=== PATIENT | male | born 2000 | race African-American/Black ===

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

== ENCOUNTER 2019-07-10 17:41 | Emergency (ER) | payer OTHER ==
[~2019-07-10] VITALS: Ht 188 cm; Wt 93.7 kg
[2019-07-10 17:41] VITALS: BP 130/50
[~2019-07-10 17:41] MED LIST changes: +AMOX1TAB61 PO
--- NOTE | 2019-07-10 18:05 | ED.ADGEN ---
Past History Past Medical History: No Pertinent History Past Surgical History: No Surgical History Smoking: Non-smoker Alcohol Use: None Drug Use: Marijuana Adult General Chief Complaint Chief Complaint "..I got the callus on my feet .. I want you to cut them off... now...." HPI HPI Patient is a 18 year old male who presents with complaints of callus on his feet. Patient requesting multiple callus because obvious feet. Calluses were co nsistent with plantar warts. Discussed findings with patient at length. Recommended patient use [id number] treatment for plantar's warts. If no success after a couple months of follow-up with podiatry. Patient denies any history immunosuppression. Patient denies history of diabetes Review of Systems Review of Systems Constitutional: Denies fever or chills [] Eyes: Denies change in visual acuity, redness, or eye pain [] HENT: Denies nasal congestion or sore throat [] Respiratory: Denies cough or shortness of breath [] Cardiovascular: No additional information not addressed in HPI [] GI: Denies abdominal pain, nausea, vomiting, bloody stools or diarrhea [] : Denies dysuria or hematuria [] Musculoskeletal: Denies back pain or joint pain []complaints of foot pain Integument: Denies rash or skin lesions [] Neurologic: Denies headache, focal weakness or sensory changes [] Endocrine: Denies polyuria or polydipsia [] All other systems were reviewed and found to be within normal limits, except as documented in this note. Family History Family History Noncontributory Current Medications Current Medications See nursing for home meds Allergies Allergies Allergies Coded Allergies Type Severity Reaction Last Updated Verified No Known Allergies Allergy Unknown 07/29/18 Yes Physical Exam Physical Exam Constitutional: Well developed, well nourished, no acute distress, non-toxic appearance. [] HENT: Normocephalic, atraumatic, bilateral external ears normal, oropharynx moist, no oral exudates, nose normal. [] Eyes: PERRLA, EOMI, conjunctiva normal, no discharge. [] Neck: Normal range of motion, no tenderness, supple, no stridor. [] Cardiovascular:Heart rate regular rhythm, no murmur [] Lungs & Thorax: Bilateral breath sounds equal with scattered wheezes on auscultation [] Abdomen: Bowel sounds normal, soft, no tenderness, no masses, no pulsatile masses. [] Skin: Warm, dry, no erythema, no rash. [] Planters warts on both feet. Back: No tenderness, no CVA tenderness. [] Extremities: No tenderness, no cyanosis, no clubbing, ROM intact, no edema. [] Neurologic: Alert and oriented X 3, normal motor function, normal sensory f unction, no focal deficits noted. [] Psychologic: Affect normal, judgement normal, mood normal. [] Current Patient Data Vital Signs Vital Signs Date Time Temp Pulse Resp B/P (MAP) Pulse Ox O2 Delivery O2 Flow Rate FiO2 07/10/19 17:41 98.8 77 16 98 Room Air EKG EKG [] Radiology/Procedures Radiology/Procedures [] Course & Med Decision Making Course & Med Decision Making Pertinent Labs and Imaging studies reviewed. (See chart for details) Patient follow-up primary care. Patient follow-up podiatry if unsuccessful treatment after treatment with [id number] treatment for plantar warts x 2 months. Patient encouraged to stop smoking.. Patient take Tylenol and ibuprofen for pain. [] Final Impression Final Impression 1. Callus - on feet[]/ Plantars warts Dragon Disclaimer Dragon Disclaimer This electronic medical record was generated, in whole or in part, using a voice recognition dictation system. Discharge Summary Visit Information Final Diagnosis Problems Medical Problems: (1) Plantar wart of both feet Status: Acute Brief Hospital Course Allergies Allergies Coded Allergies Type Severity Reaction Last Updated Verified No Known Allergies Allergy Unknown 07/29/18 Yes Vital Signs Vital Signs Date Time Temp Pulse Resp B/P (MAP) Pulse Ox O2 Delivery O2 Flow Rate FiO2 07/10/19 17:41 98.8 77 16 98 Room Air Brief Hospital Course Mr. Lorenzo is a 18 old male who presented with plantar warts. Discharge Information Condition at Discharge: Stable Disposition/Orders: D/C to Home Dischare Medications Active Scripts Active Augmentin 875-125 Tablet (Amoxicillin/Potassium Clav) 1 Each Tablet 1 Tab PO BID Clindamycin Hcl 300 Mg Capsule 1 Cap PO TID Tylenol With Codeine #3 Tablet (Acetaminophen With Codeine) 1 Each Tablet 1 Tab PO Q4-6HRS Dragon Disclaimer This chart was dictated in whole or in part using Voice Recognition software in a busy, high-work load, and often noisy Emergency Department environment. It may contain unintended and wholly unrecognized errors or omissions. ARABELLA CHAVEZ MD Jul 10, 2019 18:04
== END 2019-07-10 18:35 | disposition home or self-care (01) ==
LOC: ER 17:41
DX: B07.0 Plantar wart (principal)
CPT/HCPCS: 99281

== ENCOUNTER 2019-07-16 09:34 | Emergency (ER) | payer OTHER ==
[~2019-07-16] VITALS: Ht 188 cm; Wt 93.9 kg
[2019-07-16 09:44] VITALS: BP 165/91
[2019-07-16] MEDS ORDERED: BENZONATATE 100 MG CAPSULE. PO ONE (10:00)
[2019-07-16] MEDS ORDERED: BENZ100C PO (10:03)
--- NOTE | 2019-07-16 10:03 | PHYS DOC ---
Past History Past Medical History: No Pertinent History Past Surgical History: No Surgical History Smoking: Non-smoker Alcohol Use: None Drug Use: None Adult General Chief Complaint Chief Complaint: COUGH HPI HPI 18-year-old male presents with 3 day history of cough, congestion, nasal drainage. The patient started with a profusely runny nose. He states that it is clear, but slightly yellow today. He's also had some blood tinged nasal d ischarge today. He has been blowing his nose a lot last few days. He has tried cetirizine without relief. He also tried NyQuil last night. The patient has had a cough from the nasal drainage. He now has some anterior chest wall discomfort at the top of his sternum. He describes his pain more as his throat than his chest. The patient denies fever or chills at home. No one else in his household is sick. He does not have a history of allergies. Review of Systems Review of Systems Constitutional: Denies fever or chills [] Eyes: Denies change in visual acuity, redness, or eye pain [] HENT: Nasal congestion, runny nose, sore throat [] Respiratory: Cough without shortness of breath [] Cardiovascular: No additional information not addressed in HPI [] GI: Denies abdominal pain, nausea, vomiting, bloody stools or diarrhea [] : Denies dysuria or hematuria [] Musculoskeletal: Denies back pain or joint pain [] Integument: Denies rash or skin lesions [] Neurologic: Denies headache, focal weakness or sensory changes [] Endocrine: Denies polyuria or polydipsia [] All other systems were reviewed and found to be within normal limits, except as documented in this note. Allergies Allergies Allergies Coded Allergies Type Severity Reaction Last Updated Verified No Known Allergies Allergy Unknown 07/16/19 Yes Physical Exam Physical Exam Constitutional: Well developed, well nourished, no acute distress, non-toxic appearance. [] HENT: Normocephalic, atraumatic, bilateral external ears normal, oropharynx moist, no oral exudates, nose and drainage. [] Eyes: PERRLA, EOMI, conjunctiva normal, no discharge. [] Neck: Normal range of motion, no tenderness, supple, no stridor. [] Cardiovascular:Heart rate regular rhythm, no murmur [] Lungs & Thorax: Cough. Bilateral breath sounds clear to auscultation [] Abdomen: Bowel sounds normal, soft, no tenderness, no masses, no pulsatile masses. [] Skin: Warm, dry, no erythema, no rash. [] Back: No tenderness, no CVA tenderness. [] Extremities: No tenderness, no cyanosis, no clubbing, ROM intact, no edema. [] Neurologic: Alert and oriented X 3, normal motor function, normal sensory function, no focal deficits noted. [] Psychologic: Affect normal, judgement normal, mood normal. [] Current Patient Data Vital Signs Vital Signs Date Time Temp Pulse Resp B/P (MAP) Pulse Ox O2 Delivery O2 Flow Rate FiO2 07/16/19 09:44 97.4 68 18 97 Room Air EKG EKG [] Radiology/Procedures Radiology/Procedures [] Course & Med Decision Making Course & Med Decision Making Pertinent Labs and Imaging studies reviewed. (See chart for details) I believe the patient has a viral URI with cough. The cetirizine did not help and he took triple the recommended dose. If this was merely allergies, I would've expected this to help. I have recommended that he try Tessalon Perles. We will give him one in the ED. I will also give him a prescription. I have also advised that he could try Afrin for his runny nose and congestion. He needs to drink plenty of fluids and get some rest. This will resolve on its own. He is stable for discharge at this time. [] Dragon Disclaimer Dragon Disclaimer This electronic medical record was generated, in whole or in part, using a voice recognition dictation system. Departure Departure: Impression: Primary Impression: Viral URI with cough Disposition: HOME, SELF-CARE Condition: STABLE Referrals: PCP,NO (PCP) Patient Instructions: Upper Respiratory Infection, Adult, [id number] Scripts Benzonatate (TESSALON PERLE) 100 Mg Capsule 1 CAP PO TID PRN for COUGH, #30 CAP Prov: DIGNA PARK DO 07/16/19 DIGNA PARK DO Jul 16, 2019 10:03
== END 2019-07-16 10:13 | disposition home or self-care (01) ==
LOC: ER 09:34
DX: J06.9 Acute upper respiratory infection, unspecified (principal); B97.89 Other viral agents as the cause of diseases classified elsewhere
CPT/HCPCS: 99283

== ENCOUNTER 2019-10-06 22:28 | Emergency (ER) | payer OTHER ==
[~2019-10-06] VITALS: Ht 188 cm; Wt 89.1 kg
[~2019-10-06 22:28] MED LIST changes: +BENZ100C PO
--- NOTE | 2019-10-06 23:18 | PHYS DOC ---
Past History Past Medical History: No Pertinent History Past Surgical History: No Surgical History Smoking: Non-smoker Alcohol Use: None Drug Use: None Adult General Chief Complaint Chief Complaint: COUGH HPI HPI Patient is a 18 year old male who presents with complaint of chest pressure, cough, and congestion. The patient states symptoms started 2 days ago and have been persistent since onset. Has had subjective fever. Cough is been nonproductive. Has been around sick family members at home with similar symptoms. Denies any history of asthma and denies history of similar symptoms. Has not taken any medications for his symptoms at this time. Denies any associated abdominal pain, vomiting, or diarrhea. Review of Systems Review of Systems Constitutional: Subjective fever[] Eyes: Denies change in visual acuity, redness, or eye pain [] HENT: Denies nasal congestion or sore throat [] Respiratory: Chest tightness, shortness of breath, cough[] Cardiovascular: Denies chest pain or edema[] GI: Denies abdominal pain, nausea, vomiting, bloody stools or diarrhea [] : Denies dysuria or hematuria [] Musculoskeletal: Denies back pain or joint pain [] Integument: Denies rash or skin lesions [] Neurologic: Denies headache, focal weakness or sensory changes [] All other systems were reviewed and found to be within normal limits, except as documented in this note. Current Medications Current Medications Current Medications Medications (Trade) Dose Ordered Sig/Quentin Start Time Stop Time Status Last Admin Dose Admin Albuterol/ Ipratropium (Duoneb) 3 ml 1X ONCE 10/06/19 23:15 10/06/19 23:16 UNV Prednisone (Prednisone) 60 mg 1X ONCE 10/06/19 23:15 10/06/19 23:16 UNV Allergies Allergies Allergies Coded Allergies Type Severity Reaction Last Updated Verified No Known Allergies Allergy Unknown 07/16/19 Yes Physical Exam Physical Exam Constitutional: Alert, afebrile, appears in mild discomfort. [] HENT: Normocephalic, atraumatic, bilateral external ears normal, oropharynx moist, no oral exudates, nose normal. [] Eyes: PERRLA, EOMI, conjunctiva normal, no discharge. [] Neck: Normal range of motion, no tenderness, supple, no stridor. [] Cardiovascular:Heart rate regular rhythm, no murmur [] Lungs & Thorax: Expiratory wheezes bilaterally, no rales, no accessory muscle usage[] Abdomen: Bowel sounds normal, soft, no tenderness, no masses, no pulsatile masses. [] Skin: Warm, dry, no erythema, no rash. [] Back: No tenderness, no CVA tenderness. [] Extremities: No tenderness, no cyanosis, no clubbing, ROM intact, no edema. [] Neurologic: Alert and oriented X 3, normal motor function, normal sensory function, no focal deficits noted. [] Current Patient Data Vital Signs Vital Signs Date Time Temp Pulse Resp B/P (MAP) Pulse Ox O2 Delivery O2 Flow Rate FiO2 10/07/19 00:20 80 22 136/78 (97) 99 Room Air Lab Results Current Medications Medications (Trade) Dose Ordered Sig/Quentin Route PRN Reason Start Time Stop Time Status Last Admin Dose Admin Albuterol/ Ipratropium (Duoneb) 3 ml 1X ONCE NEB 10/06/19 23:30 10/06/19 23:31 DC 10/06/19 23:28 Prednisone (Prednisone) 60 mg 1X ONCE PO 10/06/19 23:30 10/06/19 23:31 DC 10/06/19 23:41 EKG EKG Interpreted by me: Heart rate 70, sinus rhythm, normal intervals, normal axis, no acute ST/T-wave abnormalities present[] Radiology/Procedures Radiology/Procedures [address] [address] IMAGING REPORT Signed PATIENT: JANE CURRY JACCOUNT: [id number] : 2000 LOCATION: ER AGE: 18 SEX: M EXAM STATUS: DEP ER ORD. PHYSICIAN: MARY STARR MD REASON: cough, chest pressure PROCEDURE: CHEST PA & LATERAL EXAM: PA and Lateral Views of the Chest DATE: 10/06/2019 11:15 PM INDICATION: cough, chest pressure COMPARISON: No Prior FINDINGS: The heart is not enlarged. Mediastinal and hilar contours are normal. No focal parenchymal airspace opacity. No pleural effusion or pneumothorax. IMPRESSION: 1. No radiographic evidence for acute cardiopulmonary process. Electronically signed by: Bunny Napoles MD (10/07/2019 12:28 AM) [facility] [place] DICTATED AND SIGNED BY: BUNNY NAPOLES MD DATE: 10/07/19 0028 CC: MARY STARR MD; PCP,NO ~ [] Course & Med Decision Making Course & Med Decision Making Pertinent Labs and Imaging studies reviewed. (See chart for details) Patient was treated with DuoNeb and prednisone in the emergency department. Patient does report improvement symptoms posttreatment. Symptoms appear consistent with acute bronchitis. Patient prescribed a 5 day course of prednisone in addition to albuterol inhaler and azithromycin. Recommend follow- up with primary doctor in 5 days for reevaluation and return to emergency department for any worsening symptoms per the patient was understanding and in agreement with treatment plan.[] Dragon Disclaimer Dragon Disclaimer This electronic medical record was generated, in whole or in part, using a voice recognition dictation system. Departure Departure: Impression: Primary Impression: Acute bronchitis Disposition: HOME, SELF-CARE Condition: IMPROVED Referrals: PCP,NO (PCP) Patient Instructions: Acute Bronchitis Additional Instructions: You may use Robitussin-DM in addition to the medications prescribed to you today to help treat your cough and congestion symptoms. Follow-up with your primary doctor in 5 days for reevaluation if symptoms are not improving. Return to the emergency department for any worsening symptoms. Scripts Prednisone (PREDNISONE) 20 Mg Tablet 60 MG PO DAILY, #15 TAB Prov: MARY STARR MD 10/07/19 Albuterol Sulfate (PROAIR HFA INHALER) 8.5 Gm Hfa.aer.ad 2 PUFF IH PRN Q4-6HRS PRN for wheezing for 21 Days, #1 INHALER 0 Refills Prov: MARY STARR MD 10/07/19 Azithromycin (AZITHROMYCIN TABLET) 250 Mg Tablet 1 PKG PO UD for 5 Days, #6 TAB 0 Refills 2 the first day followed by 1 for days 2-5 Prov: MARY STARR MD 10/07/19 Problem Qualifiers Primary Impression: Acute bronchitis Bronchitis organism: unspecified organism Qualified Codes: J20.9 - Acute bronchitis, unspecified MARY STARR MD Oct 06, 2019 23:18
--- NOTE | 2019-10-06 23:25 | EKG ---
[address] [address] Test Date: 2019-10-06 Test Time: 23:24:11 Pat Name: JANE CURRY Department: Room: Gender: M [employer]: : 2000 Requested By: MARY STARR Order Number: [id number] Reading MD: Measurements Intervals [place] Rate: 70 P: 90 WV: 172 QRS: 68 QRSD: 98 T: 47 QT: 348 QTc: 378 Interpretive Statements SINUS ARRHYTHMIA OTHERWISE NORMAL ECG RI6.01 No previous ECG available for comparison
[2019-10-06] MEDS ORDERED: IPRATRPIUM/ALBUTEROL 0.5/2.5MG 3 ML NEBU. NEB ONE (23:30)
[2019-10-06] MEDS ORDERED: predniSONE 20 MG TABLET PO ONE (23:30)
[2019-10-07 00:05] VITALS: BP 136/78
[2019-10-07] MEDS ORDERED: AZIT250T6 PO (00:05)
[2019-10-07] MEDS ORDERED: ALBU2.5V8 IH (00:05)
[2019-10-07] MEDS ORDERED: PRED20TA PO (00:05)
--- NOTE | 2019-10-07 00:31 | RAD ---
EXAM: PA and Lateral Views of the Chest DATE: 10/06/2019 11:15 PM INDICATION: cough, chest pressure COMPARISON: No Prior FINDINGS: The heart is not enlarged. Mediastinal and hilar contours are normal. No focal parenchymal airspace opacity. No pleural effusion or pneumothorax. IMPRESSION: 1. No radiographic evidence for acute cardiopulmonary process. Electronically signed by: Bunny Napoles MD (10/07/2019 12:28 AM) [id number]
== END 2019-10-07 00:11 | disposition home or self-care (01) ==
LOC: ER 22:28
DX: J20.9 Acute bronchitis, unspecified (principal)
CPT/HCPCS: 71046; 93005; 94640; 99284; J7512; J7620

== ENCOUNTER 2021-01-25 02:26 | Emergency (ER) | payer OTHER ==
[~2021-01-25] VITALS: Ht 188 cm; Wt 109.0 kg
[~2021-01-25 02:26] MED LIST changes: +ALBU2.5V8 IH; +AZIT250T6 PO; -CLIN300C8 PO; +CLIN300C9 PO; +PRED20TA PO
[2021-01-25 02:30] VITALS: BP 118/72
--- NOTE | 2021-01-25 02:30 | PHYS DOC ---
Past History Past Medical History: No Pertinent History Past Surgical History: No Surgical History Smoking: Cigarettes Alcohol Use: None Drug Use: None General Adult HPI: HPI: " . I was going on my legs have been swollen last 2 days it is never happened before the left is worse than the right..... Patient is a 20 year old male who presents with above hx and complaints bilateral leg swelling. Patient has pitting edema both ankles. Edema is more prevalent and left leg. No history of DVTs. No history of longstanding. No history of prior episodes of leg edema. There is no specific family history of coagulopathy or DVT. Patient denies any illicit drug use. No history of trauma. No history of travel. No history of significant ill contacts. No history of immunosuppression. Patient does smoke. Review of Systems: Review of Systems: Constitutional: Denies fever or chills Eyes: Denies change in visual acuity HENT: Denies nasal congestion or sore throat Respiratory: Denies cough or shortness of breath Cardiovascular: Complains of bilateral leg edema GI: Denies abdominal pain, nausea, vomiting, bloody stools or diarrhea : Denies dysuria Musculoskeletal: Denies back pain or joint pain Integument: Denies rash Neurologic: Denies headache, focal weakness or sensory changes Endocrine: Denies polyuria or polydipsia Lymphatic: Denies swollen glands Psychiatric: Denies depression or anxiety Family History: Family History: Noncontributory to presentation Current Medications: Current Meds: See nursing for home meds Allergies: Allergies: Allergies Coded Allergies Type Severity Reaction Last Updated Verified No Known Allergies Allergy Unknown 07/16/19 Yes Physical Exam: PE: Constitutional: Moderate acute distress, non-toxic appearance. [] HENT: Normocephalic, atraumatic, bilateral external ears normal, oropharynx moist, no oral exudates, nose normal. [] Eyes: PERRLA, EOMI, conjunctiva normal, no discharge. [] Neck: Normal range of motion, no tenderness, supple, no stridor. [] Cardiovascular: Bradycardia heart rate regular rhythm, no murmur [] Lungs & Thorax: Bilateral breath equal at apex with scattered wheezes on auscultation [] Abdomen: Bowel sounds normal, soft, no tenderness, no masses, no pulsatile masses. [] Skin: Warm, dry, no erythema, no rash. [] Back: No tenderness, no CVA tenderness. [] Extremities: No tenderness, no cyanosis, no clubbing, ROM intact, as bilateral edema. [] More prevalent in left leg. No specific cording noted. Some tenderness at groin. Neurologic: Alert and oriented X 3, normal motor function, normal sensory function, no focal deficits noted. [] Psychologic: Affect anxious, judgement normal, mood normal. [] EKG: EKG: My interpretation EKG shows a sinus rhythm at 61 bpm. No acute morphology [] Radiology/Procedures: Radiology/Procedures: [] Heart Score: C/O Chest Pain: N/A HEART Score for Chest Pain: HEART Score for Chest Pain Response (Comments) Value History Slighlty/Non-Suspicious 0 ECG Normal 0 Age < 45 0 Risk Factors 1 or 2 Risk Factors 1 Troponin < Normal Limit 0 Total 1 Risk Factors: Risk Factors: DM, Current or recent (<one month) smoker, HTN, HLP, family history of CAD, obesity. Risk Scores: Score 0 - 3: 2.5% MACE over next 6 weeks - Discharge Home Score 4 - 6: 20.3% MACE over next 6 weeks - Admit for Clinical Observation Score 7 - 10: 72.7% MACE over next 6 weeks - Early Invasive Strategies Course & Med Decision Making: Course & Med Decision Making Pertinent Labs and Imaging studies reviewed. (See chart for details) Pt. declines to give urine. Pt. to supply urine on follow up with primary. Push fruit jucies. Stop smoking and do not use illicit drugs. Impression: 1. Bilateral leg edema 2. Hypomagnesium 3. Mild Anemia [] Dragon Disclaimer: Dragon Disclaimer: This electronic medical record was generated, in whole or in part, using a voice recognition dictation system. Departure Departure: Referrals: PCP,NO (PCP) Susana Disclaimer This chart was dictated in whole or in part using Voice Recognition software in a busy, high-work load, and often noisy Emergency Department environment. It may contain unintended and wholly unrecognized errors or omissions. ARABELLA CHAVEZ MD Jan 25, 2021 02:30
[2021-01-25 03:17] LABS: BASO # 0.1 x10^3/uL (0.0-0.2); BASO % 1 % (0-3); EOS # 0.4 x10^3/uL (0.0-0.7); EOS % 8 % (0-3); HEMATOCRIT 35.6 % (39.0-53.0); HEMOGLOBIN 11.9 g/dL (13.0-17.5); LYMPH % 43 % (24-48); MEAN CORPUSCULAR HEMOGLOBIN 32 pg (25-35); MEAN CORPUSCULAR HGB CONC 33 g/dL (31-37); MEAN CORPUSCULAR VOLUME 96 fL (79-100); MONO # 0.4 x10^3/uL (0.0-1.1); MONO % 9 % (0-9); NEUT # 1.8 x10^3uL (1.8-7.7); NEUT % 39 % (31-73); PLATELET COUNT 182 x10^3/uL (140-400); RED BLOOD COUNT 3.72 x10^6/uL (4.30-5.70); RED CELL DISTRIBUTION WIDTH 12.8 % (11.5-14.5); WHITE BLOOD COUNT 4.7 x10^3/uL (4.0-11.0)
[2021-01-25 03:27] LABS: CALCIUM 8.6 mg/dL (8.5-10.1); CREATININE 1.1 mg/dL (0.7-1.3); GFR 102.2; POTASSIUM 3.8 mmol/L (3.5-5.1)
[2021-01-25] MEDS: ASPIRIN CHEWABLE 81 MG TABLET. PO ONE (03:37)
[2021-01-25] MEDS: IV RINGERS SOLUTION,LACTATED 1,000 ML IV SCH (03:39)
[2021-01-25 03:41] LABS: ALBUMIN 3.4 g/dL (3.4-5.0); DIRECT BILIRUBIN 0.1 mg/dL (0.0-0.2); MAGNESIUM 1.7 mg/dL (1.8-2.4); TOTAL BILIRUBIN 0.4 mg/dL (0.2-1.0)
[2021-01-25] MEDS: MAGNESIUM HYDROXIDE 2,400 MG/30 ML ORAL.SUSP. PO ONE (04:28)
--- NOTE | 2021-01-25 08:38 | EKG ---
[address] [address] Test Date: 2021-01-25 Test Time: 03:40:28 Pat Name: JANE CURRY Department: Room: Gender: M Manager Pipeline: RHEA : 2000 Requested By: ARABELLA CHAVEZ Order Number: [id number] Reading MD: Measurements Intervals [place] Rate: 61 P: 61 VT: 174 QRS: 40 QRSD: 98 T: 25 QT: 384 QTc: 388 Interpretive Statements SINUS RHYTHM OTHERWISE NORMAL ECG RI6.02 No previous ECG available for comparison
== END 2021-01-25 04:32 | disposition home or self-care (01) ==
LOC: ER 02:26
DX: R60.0 Localized edema (principal); E83.42 Hypomagnesemia; D64.9 Anemia, unspecified
CPT/HCPCS: 36415; 80048; 80076; 82550; 83735; 83880; 84443; 84484; 85025; 85379; 85610; 85730; 93005; 96360; 99284; J7120